=== PATIENT | female | born 1970 | race Caucasian/White ===

== ENCOUNTER 2019-05-16 17:25 | Emergency (ER) | payer SELFPAY ==
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
[2019-05-16 18:26] LABS: BARBITURATE SCREEN,URINE NEGATIVE (NEGATIVE); BENZODIAZEPINES SCREEN,URINE NEGATIVE (NEGATIVE); EDDP,URINE SCREEN NEGATIVE (NEGATIVE); METHAMPHETAMINE SCREEN, URINE NEGATIVE (NEGATIVE); TCA SCREEN,URINE NEGATIVE (NEGATIVE); THC SCREEN,URINE 50 NG/ML POSITIVE (NEGATIVE)
[2019-05-16 18:41] LABS: CHLORIDE,CL 93 mmol/L (98-107); SODIUM,NA 131 mmol/L (136-145)
[2019-05-16 18:42] LABS: ANION GAP 18.6 mmol/L (10-20)
[2019-05-16] MEDS ORDERED: Potassium Chloride 20 MEQ Tab.ER PO ONE (19:19)
[2019-05-16] MEDS ORDERED: amLODIPine 5 MG Tab PO ONE (19:21)
[2019-05-16] MEDS ORDERED: Lisinopril 10 MG Tab PO ONE (19:22)
[2019-05-17] MEDS ORDERED: Potassium Chloride 10 MEQ Tab.ER PO ONE (19:05)
== END 2019-05-16 21:03 ==
LOC: VM.ED 17:25
DX: E87.6 Hypokalemia (principal); F17.210 Nicotine dependence, cigarettes, uncomplicated; J44.9 Chronic obstructive pulmonary disease, unspecified; Z88.0 Allergy status to penicillin
CPT/HCPCS: 36415; 80053; 80305; 80307; 81001; 81025; 83735; 84443; 85025; 85610; 86140; 99284; 99285; A9270